=== PATIENT | male | born 2000 ===

== ENCOUNTER 2023-09-22 12:00 | Emergency (ER) | payer OTHER, BC ==
[2023-09-22] MEDS: Bacitracin Oint 1 GM U/D Packet TOP ONE (12:29)
[2023-09-22] MEDS: Lidocaine 1% 5 ML VIAL INJECT ONE (12:29)
== END 2023-09-22 12:57 | disposition home or self-care (01) ==
LOC: LL.ED 12:00
DX: S01.511A Laceration without foreign body of lip, initial encounter (principal); F17.210 Nicotine dependence, cigarettes, uncomplicated; W22.8XXA Striking against or struck by other objects, initial encounter
CPT/HCPCS: 12011; 99282; J3490

== ENCOUNTER 2024-10-03 06:16 | Emergency (ER) | payer BC ==
[2024-10-03] MEDS: Albuterol/Ipratropium 3.0-0.5 MG/3 ML Neb Soln NEB ONE (06:25)
[2024-10-03 06:44] LABS: BASOPHILS ABSOLUTE AUTO 0.03 K/uL (0.00-0.20); BASOPHILS PERCENT AUTO 0.6 % (0.0-2.0); EOSINOPHILS ABSOLUTE AUTO 0.41 K/uL (0.00-0.50); EOSINOPHILS PERCENT AUTO 7.5 % (0.0-5.0); HEMATOCRIT 40.6 % (39.0-49.0); HEMOGLOBIN 14.6 g/dL (13.1-16.8); IMMATURE GRAN ABSOLUTE AUTO 0.01 10^3/uL (0.00-0.04); IMMATURE GRAN PERCENT AUTO 0.2 % (0.0-0.4); LYMPHOCYTES ABSOLUTE AUTO 2.46 K/uL (0.50-3.50); LYMPHOCYTES PERCENT AUTO 45.2 % (10.0-50.0); MEAN CORPUSCULAR HEMOGLOBIN 30.5 pg (28.2-33.3); MEAN CORPUSCULAR VOLUME 84.8 fL (84.0-98.0); MONOCYTES ABSOLUTE AUTO 0.39 K/uL (0.00-1.00); MONOCYTES PERCENT AUTO 7.2 % (2.0-14.0); NEUTROPHILS ABSOLUTE AUTO 2.14 K/uL (1.40-7.00); NEUTROPHILS PERCENT AUTO 39.3 % (45.0-80.0); PLATELET COUNT,PLT 138 K/uL (150-350); RED BLOOD CELL COUNT 4.79 M/uL (4.33-5.41); RED CELL DISTRIBUTION WIDTH 12.5 % (11.2-14.1); WHITE BLOOD CELL COUNT,WBC 5.4 K/uL (4.0-10.2)
[2024-10-03 07:02] LABS: ANION GAP 11.8 meq/L (7-15); BLOOD UREA NITROGEN,BUN 12 mg/dL (7-18); CARBON DIOXIDE,CO2 24.2 mmol/L (21.0-32.0); CHLORIDE,CL 106 mmol/L (98-107); CREATININE 1.05 mg/dL (0.51-1.17); GLUCOSE RANDOM 133 mg/dL (70-99); POTASSIUM,K 3.5 mmol/L (3.5-5.1); SODIUM,NA 142 mmol/L (136-145)
[2024-10-03 07:03] LABS: ALANINE AMINOTRANSFERASE,ALT 37 U/L (12-78); ALBUMIN 3.8 g/dL (3.4-5.0); ALKALINE PHOSPHATASE 74 IU/L (46-116); ASPARTATE AMNIOTRANSFERASE,AST 15 U/L (15-37); BILIRUBIN TOTAL 0.4 mg/dL (0.2-1.0); CALCIUM 10.1 mg/dL (8.5-10.1); ESTIMATED GFR 100 mL/min (>=60); PROTEIN TOTAL,TP 6.5 g/dL (6.4-8.2)
[2024-10-03] MEDS: LORazepam 0.5 MG Tab PO ONE (07:18)
[2024-10-03] MEDS: predniSONE 20 MG Tab PO ONE (07:18)
== END 2024-10-03 07:30 | disposition home or self-care (01) ==
LOC: LL.ED 06:16 → SUPCPDRO 06:16 → LL.ED 07:30
DX: J45.31 Mild persistent asthma with (acute) exacerbation (principal); Z87.891 Personal history of nicotine dependence; Z79.52 Long term (current) use of systemic steroids; Z79.51 Long term (current) use of inhaled steroids; Z79.899 Other long term (current) drug therapy
CPT/HCPCS: 36415; 71046; 80053; 85025; 85379; 87428-QW; 94640; 99284; 99285; A9270-GY; J7512; J7620-GY

== ENCOUNTER 2024-11-10 15:41 | Emergency (ER) | payer BC ==
[2024-11-10] MEDS ORDERED: Sodium Chloride 0.9% 10 ML Syringe FLUSH PRN (15:46)
[2024-11-10 15:55] LABS: BASOPHILS ABSOLUTE AUTO 0.03 K/uL (0.00-0.20); BASOPHILS PERCENT AUTO 0.5 % (0.0-2.0); EOSINOPHILS ABSOLUTE AUTO 0.22 K/uL (0.00-0.50); EOSINOPHILS PERCENT AUTO 3.6 % (0.0-5.0); HEMATOCRIT 39.7 % (39.0-49.0); HEMOGLOBIN 14.4 g/dL (13.1-16.8); IMMATURE GRAN ABSOLUTE AUTO 0.02 10^3/uL (0.00-0.04); IMMATURE GRAN PERCENT AUTO 0.3 % (0.0-0.4); LYMPHOCYTES ABSOLUTE AUTO 1.95 K/uL (0.50-3.50); LYMPHOCYTES PERCENT AUTO 31.6 % (10.0-50.0); MEAN CORPUSCULAR HEMOGLOBIN 31.1 pg (28.2-33.3); MEAN CORPUSCULAR HGB CONC 36.3 g/dL (31.7-36.0); MEAN CORPUSCULAR VOLUME 85.7 fL (84.0-98.0); MONOCYTES ABSOLUTE AUTO 0.38 K/uL (0.00-1.00); MONOCYTES PERCENT AUTO 6.1 % (2.0-14.0); NEUTROPHILS ABSOLUTE AUTO 3.58 K/uL (1.40-7.00); NEUTROPHILS PERCENT AUTO 57.9 % (45.0-80.0); PLATELET COUNT,PLT 140 K/uL (150-350); RED BLOOD CELL COUNT 4.63 M/uL (4.33-5.41); RED CELL DISTRIBUTION WIDTH 11.9 % (11.2-14.1); WHITE BLOOD CELL COUNT,WBC 6.2 K/uL (4.0-10.2)
[2024-11-10 16:24] LABS: ALANINE AMINOTRANSFERASE,ALT 39 U/L (12-78); ALBUMIN 3.7 g/dL (3.4-5.0); ALKALINE PHOSPHATASE 73 IU/L (46-116); ANION GAP 8.1 meq/L (7-15); ASPARTATE AMNIOTRANSFERASE,AST 18 U/L (15-37); BILIRUBIN TOTAL 0.4 mg/dL (0.2-1.0); BLOOD UREA NITROGEN,BUN 12 mg/dL (7-18); CALCIUM 8.6 mg/dL (8.5-10.1); CARBON DIOXIDE,CO2 31.9 mmol/L (21.0-32.0); CHLORIDE,CL 105 mmol/L (98-107); CREATININE 1.12 mg/dL (0.51-1.17); GLUCOSE RANDOM 121 mg/dL (70-99); MAGNESIUM 1.9 mg/dL (1.8-2.4); PHOSPHORUS 4.4 mg/dL (2.6-4.7); POTASSIUM,K 4.1 mmol/L (3.5-5.1); PROTEIN TOTAL,TP 6.5 g/dL (6.4-8.2); SODIUM,NA 145 mmol/L (136-145)
[2024-11-10 16:25] LABS: ESTIMATED GFR 93 mL/min (>=60)
== END 2024-11-10 17:00 | disposition home or self-care (01) ==
LOC: LL.ED 15:41
DX: R20.2 Paresthesia of skin (principal); J45.909 Unspecified asthma, uncomplicated; Z79.899 Other long term (current) drug therapy; Z79.51 Long term (current) use of inhaled steroids; Z87.891 Personal history of nicotine dependence; Z98.890 Other specified postprocedural states
CPT/HCPCS: 36415; 80053; 83735; 84100; 84484; 85025; 99284

== ENCOUNTER 2025-08-07 17:08 | Emergency (ER) | payer BC ==
[2025-08-07 17:24] LABS: BASOPHILS ABSOLUTE AUTO 0.03 K/uL (0.00-0.20); BASOPHILS PERCENT AUTO 0.6 % (0.0-2.0); EOSINOPHILS ABSOLUTE AUTO 0.20 K/uL (0.00-0.50); EOSINOPHILS PERCENT AUTO 4.0 % (0.0-5.0); IMMATURE GRAN ABSOLUTE AUTO 0.01 10^3/uL (0.00-0.04); IMMATURE GRAN PERCENT AUTO 0.2 % (0.0-0.4); LYMPHOCYTES ABSOLUTE AUTO 1.64 K/uL (0.50-3.50); LYMPHOCYTES PERCENT AUTO 32.9 % (10.0-50.0); MONOCYTES ABSOLUTE AUTO 0.33 K/uL (0.00-1.00); MONOCYTES PERCENT AUTO 6.6 % (2.0-14.0); NEUTROPHILS ABSOLUTE AUTO 2.78 K/uL (1.40-7.00); NEUTROPHILS PERCENT AUTO 55.7 % (45.0-80.0); PLATELET COUNT,PLT 148 K/uL (150-350); RED BLOOD CELL COUNT 4.75 M/uL (4.33-5.41); RED CELL DISTRIBUTION WIDTH 11.8 % (11.2-14.1); WHITE BLOOD CELL COUNT,WBC 5.0 K/uL (4.0-10.2)
[2025-08-07] MEDS: Ondansetron 4 MG/2 ML SDV IVPUSH ONE (17:24)
[2025-08-07] MEDS: Sodium Chloride 0.9% 10 ML Syringe FLUSH PRN (17:25)
[2025-08-07] MEDS: Ketorolac 15 MG/ML SDV IVPUSH ONE (17:36)
[2025-08-07] MEDS: diphenhydrAMINE 50 MG/ML SDV IVPUSH ONE (17:36)
[2025-08-07 17:39] LABS: ALANINE AMINOTRANSFERASE,ALT 44 U/L (12-78); ASPARTATE AMNIOTRANSFERASE,AST 20 U/L (15-37); BILIRUBIN TOTAL 0.3 mg/dL (0.2-1.0); BLOOD UREA NITROGEN,BUN 9 mg/dL (7-18); CARBON DIOXIDE,CO2 29.1 mmol/L (21.0-32.0); CHLORIDE,CL 108 mmol/L (98-107); CREATININE 0.76 mg/dL (0.51-1.17); GLUCOSE RANDOM 102 mg/dL (70-99); POTASSIUM,K 4.4 mmol/L (3.5-5.1); PROTEIN TOTAL,TP 6.8 g/dL (6.4-8.2); SODIUM,NA 147 mmol/L (136-145)
[2025-08-07 17:40] LABS: APPEARANCE,URINE TURBID; GLUCOSE,URINE NEGATIVE (NEGATIVE); OCCULT BLOOD,URINE NEGATIVE (NEGATIVE)
[2025-08-07 17:40] LABS: ESTIMATED GFR 126 mL/min (>=60)
[2025-08-07] MEDS: Lactated Ringers 1,000 ML IV ONE (17:42)
[2025-08-07 17:46] LABS: LACTIC ACID 1.1 mmol/L (0.4-2.0)
== END 2025-08-07 18:40 | disposition home or self-care (01) ==
LOC: LL.ED 17:08
DX: R11.16 Cannabis hyperemesis syndrome (principal); J45.909 Unspecified asthma, uncomplicated; Z79.899 Other long term (current) drug therapy
CPT/HCPCS: 36415; 80053; 81001; 83605; 83690; 85025; 86140; 96361; 96374; 96375; 99284-25; J1200; J1885; J2405; J7120